=== PATIENT | female | born 1965 | race Caucasian/White ===

== ENCOUNTER 2018-03-03 15:49 | Emergency (ER) | payer BC, OTHER ==
--- NOTE | 2018-03-03 17:32 | EDM.PDOC ---
ED HPI GENERAL MEDICAL PROBLEM - General Chief Complaint: Chest Pain Stated Complaint: RT SIDE PAIN RADIATES TO NECK AND ARM Time Seen by Provider: 03/03/18 16:28 Source of Information: Reports: Patient History Limitations: Reports: No Limitations - History of Present Illness INITIAL COMMENTS - FREE TEXT/NARRATIVE: The patient presents with right lateral chest pain that radiates to her arm and up to her neck. This has been an ongoing problem for years. Her gallbladder was removed about 3 years ago for the same kind of pain but it did not help. She continues to have the problem but today it was worse. She has no shortness of breath with it. She will have some upper abdominal pain at times. She has no nausea or vomiting. She has no fever, chills, cough, congestion, runny nose , dysuria, or diarrhea. She does smoke. She has no history of diabetes, heart disease, hypertension or hypercholesterolemia. Onset: Gradual Duration: Week(s): Location: Reports: Chest, Abdomen Quality: Reports: Sharp Severity: Moderate Improves with: Reports: None Worsens with: Reports: None Associated Symptoms: Reports: Chest Pain. Denies: Cough, Fever/Chills, Headaches, Nausea/Vomiting, Shortness of Breath Right Chest Pain Score (Numeric/FACES): 4 - Related Data Allergies Allergy/AdvReac Type Severity Reaction Status Date / Time No Known Allergies Allergy Verified 03/03/18 16:22 Home Meds: Home Meds Omeprazole 20 mg PO DAILY 03/03/18 [History] Past Medical History - Past Surgical History GI Surgical History: Reports: Cholecystectomy Social & Family History - Tobacco Use Smoking Status *Q: Current Every Day Smoker Years of Tobacco use: 25 Packs/Tins Daily: 0.5 - Recreational Drug Use Recreational Drug Use: No ED ROS GENERAL - Review of Systems Review Of Systems: See Below Constitutional: Reports: No Symptoms HEENT: Reports: No Symptoms Respiratory: Reports: No Symptoms Cardiovascular: Reports: Chest Pain Endocrine: Reports: No Symptoms GI/Abdominal: Reports: No Symptoms : Reports: No Symptoms Musculoskeletal: Reports: No Symptoms ED EXAM, GENERAL - Physical Exam Exam: See Below Exam Limited By: No Limitations General Appearance: Alert, No Apparent Distress Ears: Normal External Exam Nose: Normal Inspection Head: Atraumatic, Normocephalic Neck: Normal Inspection Respiratory/Chest: No Respiratory Distress, Lungs Clear, Normal Breath Sounds, Other (Mild tenderness to the right lateral chest) Cardiovascular: Regular Rate, Rhythm, No Edema, No Murmur GI/Abdominal: Soft, Non-Tender, No Organomegaly, No Mass Back Exam: Normal Inspection Extremities: Normal Inspection Neurological: Alert, Oriented, No Motor/Sensory Deficits EKG INTERPRETATION EKG Date: 03/03/18 Time: 16:25 Rhythm: NSR Rate (Beats/Min): 68 Hooper: Normal P-Wave: Present QRS: Normal ST-T: Elevated (Normal early repol) QT: Normal Course - Vital Signs Last Recorded V/S: Last Vital Signs Temp 98.7 F 03/03/18 16:23 Pulse 61 03/03/18 16:23 Resp 20 03/03/18 16:23 BP 165/90 H 03/03/18 16:23 Pulse Ox 98 03/03/18 16:23 - Orders/Labs/Meds Orders: Active Orders 24 hr Category Date Time Status Cardiac Monitoring [RC] . DIRECTED Care 03/03/18 16:38 Active EKG Documentation Completion [RC] ASDIRECTED Care 03/03/18 16:26 Active EKG 12 Lead [EK] Stat Ther 03/03/18 16:26 Ordered Labs: Laboratory Tests 03/03/18 03/03/18 03/03/18 Range/Units 16:38 17:10 17:10 WBC 6.03 (3.98-10.04) K/mm3 RBC 4.60 (3.98-5.22) M/mm3 Hgb 13.7 (11.2-15.7) gm/L Hct 42.8 (34.1-44.9) % MCV 93.0 (79.4-94.8) fl MCH 29.8 (25.6-32.2) pg MCHC 32.0 L (32.2-35.5) g/dl RDW Std Deviation 42.4 (36.4-46.3) fL Plt Count 169 L (182-369) K/mm3 MPV 10.4 (9.4-12.3) fl Neut % (Auto) 50.6 (34.0-71.1) % Lymph % (Auto) 36.7 (19.3-51.7) % [place] % (Auto) 10.4 (4.7-12.5) % Eos % (Auto) 2.0 (0.7-5.8) Baso % (Auto) 0.3 (0.1-1.2) % Neut # (Auto) 3.05 (1.56-6.13) K/mm3 Lymph # (Auto) 2.21 (1.18-3.74) K/mm3 [place] # (Auto) 0.63 H (0.24-0.36) K/mm3 Eos # (Auto) 0.12 (0.04-0.36) K/mm3 Baso # (Auto) 0.02 (0.01-0.08) K/mm3 D-Dimer, Quantitative 0.39 (0.19-0.50) mg/L Sodium 141 (136-145) mEq/L Potassium 3.9 (3.5-5.1) mEq/L Chloride 106 (98-107) mEq/L Carbon Dioxide 25 (21-32) mEq/L Anion Gap 13.9 (5-15) BUN 17 (7-18) mg/dL Creatinine 0.9 (0.55-1.02) mg/dL Est Cr Clr Drug Dosing 70.30 mL/min Estimated GFR (MDRD) > 60 (>60) mL/min BUN/Creatinine Ratio 18.9 H (14-18) Glucose 80 (74-106) mg/dL Calcium 9.0 (8.5-10.1) mg/dL Total Bilirubin 0.5 (0.2-1.0) mg/dL AST 24 (15-37) U/L ALT 18 (14-59) U/L Alkaline Phosphatase 56 (46-116) U/L Troponin I < 0.017 (0.00-0.056) ng/mL Total Protein 7.3 (6.4-8.2) g/dl Albumin 3.6 (3.4-5.0) g/dl Globulin 3.7 gm/dL Albumin/Globulin Ratio 1.0 (1-2) Lipase 152 (73-393) U/L - Re-Assessments/Exams Free Text/Narrative Re-Assessment/Exam: 03/03/18 17:43 I ordered an EKG, CXR, abdominal x-ray, and labs. 03/03/18 18:14 Her EKG looks good. He CXR and abdominal x-rays look good. Her CBC and CMP look good. Her troponin is negative. Her D-dimer is negative. I am not sure what is causing her pain at this time. It does not appear to be her heart or lungs. Departure - Departure Time of Disposition: 18:15 Disposition: Home, Self-Care 01 Condition: Good Clinical Impression: Atypical chest pain Abdominal pain Qualifiers: Abdominal location: upper abdomen, unspecified Qualified Code(s): R10.10 - Upper abdominal pain, unspecified Referrals: Matilde Patino NP [Primary Care Provider] - Forms: ED Department Discharge Additional Instructions: Follow up with your doctor and talk to her about possibly taking out your Rebeca. Please return if you are worse. - My Orders Last 24 Hours: My Active Orders 03/03/18 16:26 EKG Documentation Completion [RC] ASDIRECTED EKG 12 Lead [EK] Stat 03/03/18 16:38 Cardiac Monitoring [RC] . DIRECTED - Assessment/Plan Last 24 Hours: My Active Orders 03/03/18 16:26 EKG Documentation Completion [RC] ASDIRECTED EKG 12 Lead [EK] Stat 03/03/18 16:38 Cardiac Monitoring [RC] . DIRECTED
--- NOTE | 2018-03-03 17:33 | CR ---
Chest: PA view of the chest was obtained. Comparison: No previous chest x-ray. Scoliosis is seen. Heart size and mediastinum are normal. Lungs are clear. Impression: 1. Scoliosis. Nothing acute is seen on PA chest x-ray. Diagnostic code #1
--- NOTE | 2018-03-03 17:33 | CR ---
Abdomen: Upright view of the abdomen was obtained. Bowel gas pattern appears within normal limits. No free air is seen. Scoliosis is noted within the spine. Incidental IUD is noted within the pelvis. Calcifications are seen within the pelvis compatible with phleboliths. Surgical clips are seen from prior cholecystectomy. Impression: 1. Incidental findings. Nothing acute is appreciated on upright abdominal x-ray. Diagnostic code #2
== END 2018-03-03 18:28 | disposition home or self-care (01) ==
LOC: JD.ED 15:49
DX: R07.89 Other chest pain (principal); R10.10 Upper abdominal pain, unspecified; F17.210 Nicotine dependence, cigarettes, uncomplicated
CPT/HCPCS: 36415; 71045; 71045-26; 74018; 74018-26; 80053; 83690; 84484; 85025; 85379; 93005; 99285-25

== ENCOUNTER 2018-07-10 21:28 | Emergency (ER) | payer OTHER ==
--- NOTE | 2018-07-10 21:58 | EDM.PDOC ---
ED HPI GENERAL MEDICAL PROBLEM - General Chief Complaint: Lower Extremity Injury/Pain Stated Complaint: LEG PAIN Time Seen by Provider: 07/10/18 21:35 Source of Information: Reports: Patient History Limitations: Reports: No Limitations - History of Present Illness INITIAL COMMENTS - FREE TEXT/NARRATIVE: Patient is a 52-year-old female who presents ED complaining of pain and swelling to varicosities to the left lateral leg. She states she woke this morning with increasing swelling, pain, and some slight redness to the varicosities to the distal aspect of her lateral thigh and along the lateral aspect of her knee. Pain is worse with palpation and also ambulation. She has no history of blood clots or legs or lungs. Of note this past May they started the patient on a control pill. Patient stopped smoking in April. She currently denies any shortness of breath, fever, chest pain, or any additional complaints. She has no history of cancer or any hypercoaguable condition. Left Upper Leg Pain Score (Numeric/FACES): 6 - Related Data Allergies Allergy/AdvReac Type Severity Reaction Status Date / Time No Known Allergies Allergy Verified 07/10/18 21:38 Home Meds: Home Meds Omeprazole 20 mg PO DAILY 03/03/18 [History] Past Medical History - Past Health History Medical/Surgical History: Denies Medical/Surgical History Gastrointestinal History: Reports: GERD - Past Surgical History GI Surgical History: Reports: Cholecystectomy Social & Family History - Tobacco Use Smoking Status *Q: Former Smoker Years of Tobacco use: 25 Used Tobacco, but Quit: Yes Month/Year Tobacco Last Used: nov Review of Systems - Review of Systems Review Of Systems: ROS reveals no pertinent complaints other than HPI. ED EXAM, GENERAL - Physical Exam Exam: See Below Exam Limited By: No Limitations General Appearance: Alert, WD/WN, No Apparent Distress Ears: Hearing Grossly Normal Nose: Normal Inspection Throat/Mouth: Normal Voice, No Airway Compromise Neck: Normal Inspection, Supple Respiratory/Chest: No Respiratory Distress, Lungs Clear, Normal Breath Sounds, No Accessory Muscle Use Cardiovascular: Normal Peripheral Pulses, Regular Rate, Rhythm, No Murmur Peripheral Pulses: 2+: Posterior Tibial (L), Dorsalis Pedis (L) Extremities: Other (Varicosities noted to the left lateral leg but only on the distal aspect of the thigh and knee. Swelling noted along the varicosities with mild erythema present. Slightly increased warmth noted with tenderness noted. No pain along the posterior aspect of the lower extremity. Peripheral pulses intact. Skin is pink.) Course - Vital Signs Last Recorded V/S: Last Vital Signs Temp 97.6 F 07/10/18 21:40 Pulse 81 07/10/18 21:40 Resp 18 07/10/18 21:40 BP 167/94 H 07/10/18 21:40 Pulse Ox 100 07/10/18 21:40 - Orders/Labs/Meds Orders: Active Orders 24 hr Category Date Time Status VL Duplex Lwr Ext Veins Ltd Lt [US] Stat Exams 07/10/18 21:45 Taken Labs: Laboratory Tests 07/10/18 07/10/18 Range/Units 22:00 22:00 WBC 6.36 (3.98-10.04) K/mm3 RBC 4.22 (3.98-5.22) M/mm3 Hgb 12.8 (11.2-15.7) gm/L Hct 39.3 (34.1-44.9) % MCV 93.1 (79.4-94.8) fl MCH 30.3 (25.6-32.2) pg MCHC 32.6 (32.2-35.5) g/dl RDW Std Deviation 42.8 (36.4-46.3) fL Plt Count 192 (182-369) K/mm3 MPV 11.0 (9.4-12.3) fl Neutrophils % (Manual) 59 (40-60) % Band Neutrophils % 0 (0-10) % Lymphocytes % (Manual) 32 (20-40) % Atypical Lymphs % 0 % Monocytes % (Manual) 8 (2-10) % Eosinophils % (Manual) 0 L (0.7-5.8) % Basophils % (Manual) 1 (0.1-1.2) Platelet Estimate Adequate RBC Morph Comment Normal Sodium 140 (136-145) mEq/L Potassium 3.8 (3.5-5.1) mEq/L Chloride 109 H (98-107) mEq/L Carbon Dioxide 21 (21-32) mEq/L Anion Gap 13.8 (5-15) BUN 16 (7-18) mg/dL Creatinine 0.7 (0.55-1.02) mg/dL Est Cr Clr Drug Dosing 90.38 mL/min Estimated GFR (MDRD) > 60 (>60) mL/min BUN/Creatinine Ratio 22.9 H (14-18) Glucose 105 (74-106) mg/dL Calcium 8.5 (8.5-10.1) mg/dL Total Bilirubin 0.3 (0.2-1.0) mg/dL AST 20 (15-37) U/L ALT 25 (14-59) U/L Alkaline Phosphatase 43 L (46-116) U/L C-Reactive Protein 0.9 (<1.0) mg/dL Total Protein 6.7 (6.4-8.2) g/dl Albumin 3.0 L (3.4-5.0) g/dl Globulin 3.7 gm/dL Albumin/Globulin Ratio 0.8 L (1-2) - Re-Assessments/Exams Free Text/Narrative Re-Assessment/Exam: Suspect patient has superficial thrombophlebitis caused by recent starting of control. Basic labs will be obtained along revealed duplex of the left lower extremity to evaluate for deep venous thrombosis. Labs reviewed with no concerning findings. 2244 Ultrasound has just been completed and sent to [facility] for interpretation. 2309 ultrasound impression: Negative. No deep venous thrombosis is seen. There appears to be superficial thrombophlebitis of a varicosity in the calf. Patient will be discharged home with instructions to utilize NSAIDs and warm compresses. I will provide a short course of narcotic pain medications for severe pain. Patient will be instructed to discontinue the control pill. Return precautions discussed with the patient. Patient had no further questions. Departure - Departure Time of Disposition: 22:55 Disposition: Home, Self-Care 01 Condition: Good Clinical Impression: Superficial thrombophlebitis Qualifiers: Superficial thrombophlebitis-Involved body area: lower extremity Laterality: left Qualified Code(s): I80.02 - Phlebitis and thrombophlebitis of superficial vessels of left lower extremity - Discharge Information Instructions: Phlebitis, [id number] Referrals: Matilde Patino NP [Primary Care Provider] - Forms: ED Department Discharge Additional Instructions: Take ibuprofen 600 mg every 6 hours. Apply warm compresses to the affected area 3 times a day 30 minutes in duration. Start wearing compression stockings as directed. For severe pain take Endeavor one tab every [address] while taking this medication. Follow-up with her PCP this coming week for reevaluation. Return to the ED if you develop any new or worsening symptoms. Stopped taking the control pill. - My Orders Last 24 Hours: My Active Orders 07/10/18 21:45 VL Duplex Lwr Ext Veins Ltd Lt [US] Stat - Assessment/Plan Last 24 Hours: My Active Orders 07/10/18 21:45 VL Duplex Lwr Ext Veins Ltd Lt [US] Stat
--- NOTE | 2018-07-11 08:32 | US ---
Left lower extremity deep venous ultrasound: Duplex and color flow imaging was obtained of the left common femoral, proximal greater saphenous, superficial femoral, popliteal, posterior tibial and peroneal veins. Right common femoral vein was also evaluated. Comparison: No prior venous exam. Superficial varicosities are seen lateral and inferior to the left knee that show evidence of thrombus compatible with superficial thrombophlebitis. Deep veins show normal phasic flow, augmentation and compression. Impression: 1. Superficial thrombophlebitis as noted above. 2. No evidence of deep venous thrombosis within the left lower extremity or within the right common femoral vein. Diagnostic code #3 I agree with preliminary report from [facility], finalized on 07/11/18, 12:04 AM Central Time
== END 2018-07-10 23:27 | disposition home or self-care (01) ==
LOC: JD.ED 21:28
DX: I80.02 Phlebitis and thrombophlebitis of superficial vessels of left lower extremity (principal); K21.9 Gastro-esophageal reflux disease without esophagitis; Z87.891 Personal history of nicotine dependence; Z90.49 Acquired absence of other specified parts of digestive tract; Z79.899 Other long term (current) drug therapy
CPT/HCPCS: 36415; 80053; 85007; 85027; 86140; 93971-26-LT; 93971-LT; 99284-25

== ENCOUNTER 2021-09-23 12:27 | Day surgery (SDC) | payer OTHER ==
[2021-09-23] MEDS: Lactated Ringers 1,000 ML IV SCH ×2 (11:15→14:30)
[~2021-09-23 12:27] MED LIST: Acetaminophen 325 MG Tab PO SCH; Bupivacaine 0.25% 10 ML SDV ONE; Lidocaine 1%/Sod Bicarbonate in NS 8.4% 1 ML Syringe IDERM PRN; Morphine 8 MG, EPINEPHrine 0.3 MG, Cefuroxime 750 MG, Ketorolac 30 MG, Sodium Chloride ... PRN; Ondansetron 4 MG/2 ML SDV ONE; Pregabalin 25 MG Cap PO SCH; Propofol 200 MG/20 ML SDV ONE; Sodium Chloride 0.9% 10 ML Syringe FLUSH PRN; Sodium Chloride 0.9% 10 ML Syringe FLUSH SCH; Triamcinolone Acetonide 40 MG/ML 1 ML SDV ONE; Vancomycin 1 GM SDV ONE; ceFAZolin 1 GM Vial ONE; fentaNYL 100 MCG/2 ML SDV ONE; oxyCODONE ER 10 MG TAB.ER PO SCH
[2021-09-23] MEDS ORDERED: Lidocaine 1% 4 ML ONE (12:56)
[2021-09-23] MEDS ORDERED: ePHEDrine 50 MG/ML SDV ONE (13:28)
[2021-09-23] MEDS ORDERED: Ketorolac 30 MG/ML SDV ONE (14:05)
[2021-09-23] MEDS ORDERED: Ondansetron 4 MG/2 ML SDV IVPUSH PRN (14:28)
[2021-09-23] MEDS ORDERED: fentaNYL 100 MCG/2 ML SDV IVPUSH PRN (14:28)
[2021-09-23] MEDS ORDERED: HYDROmorphone 0.5 MG/0.5 ML Syringe IVPUSH PRN (14:28)
[2021-09-23] MEDS ORDERED: Ropivacaine 0.5% 5 MG/ML 30 ML SDV ONE (14:33)
[2021-09-23] MEDS ORDERED: EPINEPHrine 1 MG/ML SDV ONE (14:33)
[2021-09-23] MEDS ORDERED: oxyCODONE 5 MG Tab PO ONE (15:45)
== END 2021-09-23 17:30 | disposition home or self-care (01) ==
LOC: JD.SDS 12:27
PROVIDERS: ATTEND Orthopaedic Surgery
DX: M17.0 Bilateral primary osteoarthritis of knee (principal); N28.1 Cyst of kidney, acquired; J32.9 Chronic sinusitis, unspecified; F32.A Depression, unspecified; E78.5 Hyperlipidemia, unspecified; I10 Essential (primary) hypertension; K21.9 Gastro-esophageal reflux disease without esophagitis; Z79.899 Other long term (current) drug therapy; Z90.49 Acquired absence of other specified parts of digestive tract; Z98.890 Other specified postprocedural states; Z87.891 Personal history of nicotine dependence
CPT/HCPCS: 0055T; 20610; 27447; 73560; 97116; 97161; A9270; C1713; C1776; J0171; J0690; J0697; J1885; J2270; J2370; J2405; J2704; J2795; J3010; J3301; J3370; J3490; J7120; 01402; 64447; 76942